=== PATIENT | female | born 1950 | race Caucasian/White ===

== ENCOUNTER 2020-05-29 12:20 | Inpatient (IN) ==
[2020-05-29] MEDS ORDERED: Naloxone 0.4 MG/ML INJ IVP PRN (14:37)
[2020-05-29 16:27] LABS: Bilirubin,Urine Negative (Negative); Blood,Urine Small (Negative); Clarity,Urine Clear (Clear); Color,Urine Colorless (Yellow); Glucose,Urine (UA) Normal (Normal); Ketones,Urine Negative (Negative); Leukocyte Esterase,Urine Negative (Negative); Nitrite,Urine Negative (Negative); PH,Urine 7.5 pH Units (5.0-8.0); Protein,Urine Negative (Neg-Trace); RBC,Urine 30-50 per hpf (0-3); Specific Gravity,Urine 1.009 (1.010-1.025); Urobilinogen,Urine Normal (Normal); WBC,Urine 0-3 per hpf (0-3)
[2020-05-29 17:26] LABS: Adenovirus Not Detected (Not Detect); Coronavirus 229E Not Detected (Not Detect); Coronavirus HKU1 Not Detected (Not Detect); Coronavirus NL63 Not Detected (Not Detect); Coronavirus OC43 Not Detected (Not Detect); Human Metapneumovirus Not Detected (Not Detect); Human Rhinovirus/Enterovirus Not Detected (Not Detect); Influenza A Subtype 2009 H1 Not Detected (Not Detect); Influenza B Not Detected (Not Detect); Parainfluenza Virus 1 Not Detected (Not Detect); Parainfluenza Virus 2 Not Detected (Not Detect); Parainfluenza Virus 3 Not Detected (Not Detect); SARS-CoV-2 Not Detected (Not Detect)
[2020-05-29 17:27] LABS: Bordetella Pertussis Not Detected (Not Detect); Chlamydophila pneumoniae Not Detected (Not Detect); Mycoplasma pneumoniae Not Detected (Not Detect); Parainfluenza Virus 4 Not Detected (Not Detect); Respiratory Syncytial Virus Not Detected (Not Detect)
[2020-05-29] MEDS: *HR* Heparin 5,000 UNIT/ML VIAL SQ SCH (17:31)
[2020-05-29] MEDS: Ondansetron ODT 4 MG TAB.RAPDIS SL PRN (23:47)
[2020-05-30 02:05] LABS: Basophils % 0.3 %; Eosinophils % 0.3 %; Hematocrit 43.4 % (35.3-44.9); Hemoglobin 14.4 g/dL (11.5-15.4); Immature Granulocytes % 0.3 % (0-4); Lymphocytes # 0.7 K/mcL (0.6-4.6); Lymphocytes % 9.8 %; Mean Corpuscular HGB Conc 33.2 g/dL (31.6-35.5); Mean Corpuscular Hemoglobin 32.3 pg (28.0-33.3); Mean Corpuscular Volume 97.3 fL (83.0-100.0); Monocytes # 0.8 K/mcL (0.0-1.3); Monocytes % 11.2 %; Neutrophils # 5.4 K/mcL (1.6-8.9); Platelet Count 214 K/mcL (140-400); Red Blood Count 4.46 M/mcL (3.82-4.97); Red Cell Distribution Width 12.9 % (11.5-14.5); Segmented Neutrophils % 78.1 %
[2020-05-30 02:24] LABS: Calcium 9.5 mg/dL (8.6-10.3); Potassium 4.4 mEq/L (3.5-5.1)
[2020-05-30] MEDS: *HR* Heparin 5,000 UNIT/ML VIAL SQ SCH ×2 (05:24→17:16)
[2020-05-30] MEDS ORDERED: Ondansetron 4 MG/2 ML VIAL ONE (07:15)
[2020-05-30] MEDS ORDERED: Dexamethasone 4 MG/ML VIAL ONE (07:15)
[2020-05-30] MEDS ORDERED: Lidocaine HCL 4 ML Topical Solution (Laryng-O-Jet Kit Sterile Pak) TP ONE (07:15)
[2020-05-30] MEDS ORDERED: *HR* FentaNYL (PF) 100 MCG/2 ML VIAL ONE (07:15)
[2020-05-30] MEDS ORDERED: *HR* Succinylcholine 200 MG/10 ML VIAL IVP ONE (07:15)
[2020-05-30] MEDS ORDERED: Lidocaine -MPF 2% 2 ML VIAL ONE (07:15)
[2020-05-30] MEDS ORDERED: *HR* Propofol 200 MG/20 ML VIAL IVP ONE (07:16)
[2020-05-30] MEDS ORDERED: CeFAZolin Syr 2,000MG/20 ML 2,000 MG/20 ML SYRINGE IVPB ONE (07:46)
[2020-05-30] MEDS ORDERED: *HR* HYDROmorphone PF 0.5 MG/0.5 ML SYRINGE IVP PRN (09:27)
[2020-05-30] MEDS ORDERED: Ondansetron 4 MG/2 ML VIAL IVP PRN (09:27)
[2020-05-30] MEDS ORDERED: *HR* FentaNYL (PF) 100 MCG/2 ML VIAL IVP PRN (09:27)
[2020-05-30] MEDS ORDERED: EPHEDrine 50 MG/ML VIAL ONE (09:47)
[2020-05-30] MEDS ORDERED: Ketorolac 30 MG/ML VIAL ONE (11:48)
[2020-05-30] MEDS ORDERED: *HR* HYDROMORPHONE 2 MG/ML VIAL ONE (11:50)
[2020-05-30] MEDS ORDERED: Ringers Solution, Lactated 1,000 ML ONE (12:48)
[2020-05-30] MEDS: Artificial Tears SOLN 15 ML BOTTLE BOTH EYES PRN (17:15)
[2020-05-30] MEDS: CeFAZolin 2 GM/120 ML BAG IVPB SCH ×2 (17:15→23:03)
[2020-05-31 01:13] LABS: Basophils % 0.1 %; Hematocrit 35.7 % (35.3-44.9); Hemoglobin 11.8 g/dL (11.5-15.4); Immature Granulocytes % 0.2 % (0-4); Lymphocytes # 0.4 K/mcL (0.6-4.6); Lymphocytes % 5.2 %; Mean Corpuscular HGB Conc 33.1 g/dL (31.6-35.5); Mean Corpuscular Hemoglobin 32.3 pg (28.0-33.3); Mean Corpuscular Volume 97.8 fL (83.0-100.0); Mean Platelet Volume 10.5 fL (9.4-12.4); Monocytes # 1.1 K/mcL (0.0-1.3); Monocytes % 12.9 %; Neutrophils # 6.7 K/mcL (1.6-8.9); Platelet Count 198 K/mcL (140-400); Red Blood Count 3.65 M/mcL (3.82-4.97); Segmented Neutrophils % 81.6 %; White Blood Count 8.2 K/mcL (4.3-11.1)
[2020-05-31] MEDS ORDERED: Acetaminophen 325 MG TABLET PO ONE (01:18)
[2020-05-31 01:25] LABS: BUN/Creatinine Ratio 22 (6-26); Blood Urea Nitrogen 23 mg/dL (8-23); Calcium 8.5 mg/dL (8.6-10.3); Carbon Dioxide 26 mEq/L (23-29); Chloride 97 mEq/L (98-107); Glucose 140 mg/dL (70-105); Osmolality,Calculated 282 (280-300); Potassium 4.4 mEq/L (3.5-5.1); Sodium 133 mEq/L (136-145); eGFR For African Americans > 60 (> 60); eGFR For Non-African Americans 51 (> 60)
[2020-05-31] MEDS: *HR* Heparin 5,000 UNIT/ML VIAL SQ SCH (06:15)
[2020-05-31] MEDS: Ondansetron ODT 4 MG TAB.RAPDIS SL PRN ×2 (06:15→15:32)
[2020-05-31] MEDS: Artificial Tears SOLN 15 ML BOTTLE BOTH EYES PRN (09:55)
[2020-05-31 13:07] VITALS: BP 105/57
[2020-05-31] MEDS ORDERED: Latanoprost 2.5 ML BOTTLE BOTH EYES SCH (21:00)
== END 2020-05-31 16:00 | disposition home health service (06) | DRG 482 ==
LOC: 3BNU → SUATTDRO 14:37 → 3NENU 23:29
PROVIDERS: ADMIT Internal Medicine; ATTEND Internal Medicine